=== PATIENT | female | born 1950 | race Caucasian/White ===

== ENCOUNTER 2022-07-17 10:14 | Outpatient (CLI) | payer MEDICARE, MEDICAID ==
[~2022-07-17] VITALS: Ht 176.5 cm; Wt 52.6 kg
[2022-07-17] MEDS ORDERED: albuterol 2.5 MG/3 ML nebule NEB ONE (11:05)
== END 2022-07-17 23:59 | disposition home or self-care (01) ==
LOC: RT 10:14
PROVIDERS: ATTEND Family Medicine
DX: J44.9 Chronic obstructive pulmonary disease, unspecified (principal); F17.210 Nicotine dependence, cigarettes, uncomplicated; Z79.82 Long term (current) use of aspirin; Z79.899 Other long term (current) drug therapy
CPT/HCPCS: 94060; 94760

== ENCOUNTER 2024-05-21 08:36 | Outpatient (CLI) | payer MEDICARE, MEDICAID ==
[2024-05-20 10:49] LABS: ALBUMIN 3.8 G/DL (3.4-5.0); ANION GAP 9 (8-16); BLOOD UREA NITROGEN 11 MG/DL (7-18); BUN/CREATININE RATIO 13.3 (10.0-20.0); CALCIUM 9.5 MG/DL (8.5-10.1); CHLORIDE 106 MMOL/L (99-107); CREATININE 0.83 MG/DL (0.40-0.90); GLUCOSE 128 MG/DL (70-104); POTASSIUM 4.1 MMOL/L (3.5-5.1); SODIUM 143 MMOL/L (135-145); TOTAL CARBON DIOXIDE 28.3 MMOL/L (24-32); eGFR 67 ML/MIN
[2024-05-21] MEDS ORDERED: iohexol 350MG/ML 100ml bottle IV ONE (08:58)
== END 2024-05-21 23:59 | disposition home or self-care (01) ==
LOC: RAD 08:36
PROVIDERS: ATTEND Internal Medicine Interventional Cardiology
DX: R09.89 Other specified symptoms and signs involving the circulatory and respiratory systems (principal); F17.210 Nicotine dependence, cigarettes, uncomplicated; R06.02 Shortness of breath; E78.5 Hyperlipidemia, unspecified
CPT/HCPCS: 36415; 70498; 80048; Q9967

== ENCOUNTER 2025-05-10 13:39 | Emergency (ER) | payer MEDICARE, MEDICAID ==
[~2025-05-10] VITALS: Ht 176.5 cm; Wt 55.0 kg
--- NOTE | 2025-05-10 14:20 | RADIOLOGY REPORT ---
CLINICAL INDICATION: Shoulder Pain TECHNIQUE: 2 radiographic views of the right shoulder were obtained. Comparison: None FINDINGS/IMPRESSION: There is no evidence of acute fracture or dislocation. Severe osteoarthrosis of the right glenohumeral joint.
--- NOTE | 2025-05-10 14:47 | RADIOLOGY REPORT ---
CLINICAL INFORMATION: Fall injury with head strike. TECHNIQUE: Axial imaging was obtained through the brain without contrast. Coronal and sagittal reform atted images were obtained, reviewed, and stored. Images were reviewed in brain and bone windows. Al l CT scans at this medical facility are performed using dose modulation techniques as appropriate to a performed exam including the following: Automated exposure control was utilized; adjustment of the MA and/or KV according to patient size; and use of iterative reconstruction technique. CTDIvol = 54.2 3 mGy DLP = 885.53 mGy-cm COMPARISON: None FINDINGS: There is no acute intracranial hemorrhage. No mass effect or midline shift. Scattered areas of hypoattenuation are seen in the periventricular and subcortical white matter, which are nonspecif ic but most likely sequelae of small vessel ischemic disease. The ventricles and sulci are within nor mal limits in size for age. Basal cisterns are patent. The calvarium is unremarkable. Paranasal sinu ses and mastoid air cells are clear. IMPRESSION: 1. No CT evidence of acute intracranial abnormality. 2. Nonacute findings as described above.
--- NOTE | 2025-05-10 15:02 | RADIOLOGY REPORT ---
Indication: FALL WITH HEADSTRIKE AND NECK PAIN Technique: CT axial images of the cervical spine are obtained without contrast. Coronal and sagittal reformats were obtained. Radiation Dose Information: CTDI volume is 14.2 mGy. Dose-length product is 362 mGy*cm Comparison: None FINDINGS: The cervical vertebral body heights are maintained. Straightening of normal cervical spine curvature . 2 mm degenerative retrolisthesis of C6 upon C7. There is moderate to advanced disc space narrowing. No prevertebral edema. Partial ankylosis of the C2 and C3 vertebral posteriorly. Facet articulation s demonstrate moderate facet hypertrophic changes. . The atlantooccipital, atlantoaxial articulations are intact. IMPRESSION: Moderate to advanced cervical degenerative disc disease most pronounced at C6-7.
[2025-05-10 15:09] VITALS: BP 122/51; PULSE 77; O2SAT 98
[2025-05-10 16:54] VITALS: RESP 17
--- NOTE | 2025-05-10 17:17 | Physician Documentation ---
History of Present Illness ~ Chief Complaint: Mechanical Fall Stated Complaint: SYNCOPE ON 3 DAYS AGO Time Seen by MD: 16:57 Mode of Arrival: POV HPI This is a 74-year-old female who presents with right shoulder and right sided head pain after reported fall three days prior, patient reports she does not remember the fall and that her had to help her up off the ground. P hayden reports that she has had more frequent falls lately in his being worked up by her primary care provider for possible medication adjustment and for memory problems. Patient reports no persistent vomiting. Patient reports no other acute symptoms or concerns. Patient reports not on blood thinners. Tetanus within 5 Years?: No (UNK) Medication Reconciliation Allergies: Coded Allergies: acetaminophen (Verified Allergy, Unknown, 07/17/22) codeine (Verified Allergy, Unknown, 07/17/22) ibuprofen (Verified Allergy, Unknown, 07/17/22) levofloxacin (Verified Allergy, Unknown, 07/17/22) pentazocine (Verified Allergy, Unknown, 07/17/22) tetracycline (Verified Allergy, Unknown, 07/17/22) Past Medical History Past Medical History: Chronic Pain Past Surgical History: orthopedic surgeries (Right shoulder) Review of Systems ROS Right shoulder pain and right head pain as stated above in the HPI, otherwise all systems are reviewed and negative. Physical Exam Vital Signs: Temperature: 98.9, Source: Temporal, Heart Rate: 77, Respiratory Rate: 17, BP: 122/51, Pulse Oximetry: 98, Weight: 55.000 Oxygen Flow Rate: 0 Physical Exam VITALS: Reviewed and as above. GENERAL: Alert oriented x4, nontoxic appearing, no apparent distress. HEENT: PERRLA, EOMI, no scalp hematomas or lacerations, no sharma sign, no raccoon eyes, no central C-spine tenderness RESPIRATORY: No increased work of breathing, no respiratory distress, speaking in full clear sentences MUSCULOSKELETAL: Right posterior shoulder tender to palpation, limited ROM in right shoulder due to pain, patient unable to right lift arm above 90 due to pain, brisk capillary refill to right hand, sensation intact to right upper extremity Progress Results/Orders Results/Orders Orders - ROBERT NEGRETE [employer] [facility] Head (05/10/25 14:00) Ct Cervical Spine (05/10/25 14:00) Shoulder, Complete (Min 2 Vws) (05/10/25 14:00) Completed Orders - ROBERT NEGRETE [employer] Ct Head (05/10/25 14:00) Ct Cervical Spine (05/10/25 14:00) Shoulder, Complete (Min 2 Vws) (05/10/25 14:00) Vital Signs 05/10/25 05/10/25 05/10/25 05/10/25 13:43 15:09 16:54 17:32 Temp 98.9 98.9 Pulse 120 77 Resp 18 18 17 B/P (MAP) 132/75 122/51 (74) Pulse Ox 97 98 O2 Flow Rate 0 0 EKG/XRAY/CT/US/VASC/MRI Bone/Soft Tissue X-Ray (Ext.) : Additional Comment CLINICAL INDICATION: Shoulder Pain TECHNIQUE: 2 radiographic views of the right shoulder were obtained. Comparison: None FINDINGS/IMPRESSION: There is no evidence of acute fracture or dislocation. Severe osteoarthrosis of the right glenohumeral joint. Electronically Signed by:JEFFREY THORNE MD Date & Time: 05/10/25 1418 Dictated by: JEFFREY THORNE MD Dictation date and time: 05/10/25 1355 I have reviewed and agree with the radiology report. I have reviewed and interpreted the imaging as: Fracture or dislocation CT #1: Impression Indication: FALL WITH HEADSTRIKE AND NECK PAIN Technique: CT axial images of the cervical spine are obtained without contrast. Coronal and sagittal reformats were obtained. Radiation Dose Information: CTDI volume is 14.2 mGy. Dose-length product is 362 mGy*cm Comparison: None FINDINGS: The cervical vertebral body heights are maintained. Straightening of normal cervical spine curvature. 2 mm degenerative retrolisthesis of C6 upon C7. There is moderate to advanced disc space narrowing. No prevertebral edema. Partial ankylosis of the C2 and C3 vertebral posteriorly. Facet articulations demonstrate moderate facet hypertrophic changes. . The atlantooccipital, atlantoaxial articulations are intact. IMPRESSION: Moderate to advanced cervical degenerative disc disease most pronounced at C6-7. Electronically Signed by:MADDIE MORA MD Date & Time: 05/10/25 1501 Dictated by: MADDIE MORA MD Dictation date and time: 05/10/25 1501 I have reviewed and agree with the radiology report. I have reviewed and interpreted the imaging as: No vertebral fractures CT #2: Impression CLINICAL INFORMATION: Fall injury with head strike. TECHNIQUE: Axial imaging was obtained through the brain without contrast. Coronal and sagittal reformatted images were obtained, reviewed, and stored. Images were reviewed in brain and bone windows. All CT scans at this medical facility are performed using dose modulation techniques as appropriate to a perf ormed exam including the following: Automated exposure control was utilized; adjustment of the MA and/or KV according to patient size; and use of iterative reconstruction technique. CTDIvol = 54.23 mGy DLP = 885.53 mGy-cm COMPARISON: None FINDINGS: There is no acute intracranial hemorrhage. No mass effect or midline shift. Scattered areas of hypoattenuation are seen in the periventricular and subcortical white matter, which are nonspecific but most likely sequelae of small vessel ischemic disease. The ventricles and sulci are within normal limits in size for age. Basal cisterns are patent. The calvarium is unremarkable. Paranasal sinuses and mastoid air cells are clear. IMPRESSION: 1. No CT evidence of acute intracranial abnormality. 2. Nonacute findings as described above. Electronically Signed by:ESTIVEN MENDENHALL DO Date & Time: 05/10/251443 Dictated by: ESTIVEN MENDENHALL DO Dictation date and time: 05/10/25 1444 I have reviewed and agree with the radiology report. I have reviewed and interpreted the imaging as: No intracranial hemorrhage Medical Decision Making Findings This 74-year-old female presented several days after a fall in which she does not remember the event in which she she struck her head, patient reported pain to right lateral scalp and right shoulder. Physical exam demonstrated pain to right shoulder with limited range of motion though x-ray did not demonstrate evidence of fracture or dislocation to the area. Reassuring the right arm is neurovascularly intact. Physical exam did not demonstrate evidence of injury to right head and CT of head and neck did not demonstrate acute abnormalities including no vertebral fractures, traumatic misalignment, intracranial hemorrhage, or evidence of skull fracture pain. Patient is otherwise well- appearing and remainder of physical exam benign. It is reassuring patient has follow up appointment with primary care soon for evaluation of frequent falls and memory problems. Due to patient's limited range of motion in right arm due to pain arm was placed in a sling for comfort, plan is for patient to follow up outpatient with primary care and orthopedist for evaluation of rotator cuff tear, as patient has pain medications prescribed for chronic pain she will utilize these medications for pain management. Patient is appropriate for outpatient follow up. Patient provided follow up instructions, return to care precautions, and home care instructions which she verbalized understanding of. Differential Dx:Considerations: Include: Fracture(s), Spine injury, Vascular injury, Laceration(s), Other (intracranial hemorrhage, dislocation) Departure Disposition: HOME / SELF CARE / HOMELESS Impression: Primary Impression: Right shoulder pain Qualified Codes: M25.511 - Pain in right shoulder Additional Impressions: Pain head Qualified Codes: R51.9 - Headache, unspecified Fall Qualified Codes: W19.XXXA - Unspecified fall, initial encounter Condition: Improved Discharge Instructions: Fall Prevention in the Home, Adult, [id number], Shoulder Pain, [id number] Additional Instructions: Please use the sling for comfort, though make sure you move your shoulder several times a day to avoid a frozen shoulder. Please continue to use your previously prescribed pain medications. You will need to follow up with the orthopedist at the number provided (or your orthopedist of choice) and your primary care provider for further workup. Please follow up with your primary care provider in the next few days. Please return to the emergency department for any new or worsening concerning symptoms including but not limited to new confusion or persistent vomiting. Referrals: NO PRIMARY CARE PROVIDER (PCP) Education Educated: Patient Educated regarding: diagnosis, treatment, prognosis, need for follow up Signature Scribe Signature: No scribe Attestation: The note accurately reflects work and decisions made by me.KAITLIN Dukes 05/10/25 22:34 ROBERT NEGRETE May 10, 2025 17:17
[2025-05-10 17:32] VITALS: TEMP 98.9
== END 2025-05-10 17:34 | disposition home or self-care (01) ==
LOC: ER 13:40
DX: M25.511 Pain in right shoulder (principal); R51.9 Headache, unspecified; Z88.5 Allergy status to narcotic agent; Z88.1 Allergy status to other antibiotic agents; Z88.6 Allergy status to analgesic agent; W18.30XA Fall on same level, unspecified, initial encounter; Y93.89 Activity, other specified; Y92.89 Other specified places as the place of occurrence of the external cause; Y99.8 Other external cause status
CPT/HCPCS: 70450; 72125; 73030; 99284; A4565

== ENCOUNTER 2025-08-15 08:32 | Outpatient (CLI) | payer MEDICARE, MEDICAID ==
--- NOTE | 2025-08-15 10:41 | RADIOLOGY REPORT ---
CLINICAL INDICATION: VISUAL HALLUCINATIONS COMPARISON: CT CT HEAD on DOS: 05/10/25 TECHNIQUE: Multisequence multiplanar MRI images of the brain were obtained prior to and after the uneventful administration of 9 mL of Clariscan contrast. FINDINGS: No acute infarct or hemorrhage. No mass or midline shift. Scattered small foci of T2/FLAIR hyperintense signal in the periventricular and subcortical white matter are nonspecific, but most likely sequelae of mild chronic small vessel ischemic disease. No abnormal parenchymal or meningeal enha ncement. Ventricles and sulci are within normal limits. Basal cisterns are patent. Cerebellum, brainstem, and midline structures are within normal limits. Paranasal sinuses are clear. Orbits are grossly unremarkable. IMPRESSION: 1. No acute intracranial abnormality. 2. No mass or abnormal postcontrast enhancement. 3. Nonacute findings as described above.
[2025-08-15] MEDS ORDERED: GADOTERATE MEGLUMINE 7.5 MMOL/15 ML VIAL IV ONE (11:02)
== END 2025-08-15 23:59 | disposition home or self-care (01) ==
LOC: MRI 08:32
PROVIDERS: ATTEND Student in an Organized Health Care Education/Training Program
DX: R44.1 Visual hallucinations (principal)
CPT/HCPCS: 70553; A9575